=== PATIENT | female | born 1950 | race Caucasian/White ===

== ENCOUNTER 2023-10-21 05:25 | Emergency (ER) | payer OTHER ==
[~2023-10-21] VITALS: Ht 157.5 cm; Wt 83.9 kg
[~2023-10-21 05:25] MED LIST: ATI.5 PO; ATOR40TA PO; CARV3.12 PO; DULO30EC PO; EMPA1TAB PO; GLIP5TAB14 PO; HYDR12.516 PO; LOSA50TA57 PO; METF-346 PO; METH5TAB PO; METO-460 PO; OMEP40EC24 PO; SYN.075 PO
[2023-10-21 05:48] VITALS: BP 151/76; PULSE 84; RESP 16; TEMP 97.3; O2SAT 95
[2023-10-21 07:13] LABS: FLU A ANTIGEN negative (NEGATIVE); FLU B ANTIGEN NEGATIVE (NEGATIVE)
[2023-10-21] MEDS ORDERED: KETOROLAC 60 MG/2 ML VIAL IM ONE (07:40)
[2023-10-21] MEDS ORDERED: PRED20TA5 PO (07:46)
[2023-10-21] MEDS ORDERED: IBUP-2213 PO (07:46)
[2023-10-21] MEDS ORDERED: NIRM1TAB PO (07:46)
== END 2023-10-21 08:08 | disposition home or self-care (01) ==
LOC: MED 05:25
DX: U07.1 COVID-19 (principal); Z20.822 Contact with and (suspected) exposure to COVID-19; E03.9 Hypothyroidism, unspecified; K21.9 Gastro-esophageal reflux disease without esophagitis; I11.9 Hypertensive heart disease without heart failure; E11.9 Type 2 diabetes mellitus without complications; Z79.4 Long term (current) use of insulin; Z79.899 Other long term (current) drug therapy; Z88.5 Allergy status to narcotic agent
CPT/HCPCS: 87426; 87804; 96372; 99283; J1885

== ENCOUNTER 2024-04-28 16:57 | Emergency (ER) | payer OTHER ==
[~2024-04-28] VITALS: Ht 165.1 cm; Wt 79.4 kg
[~2024-04-28 16:57] MED LIST changes: -GLIP5TAB14 PO; +GLIP5TAB24 PO; +IBUP-2213 PO; +NIRM1TAB PO; +PRED20TA5 PO
[2024-04-28 17:09] VITALS: BP 122/65; PULSE 98; RESP 20; TEMP 97.5; O2SAT 100
[2024-04-28 17:32] VITALS: O2SAT 100
[2024-04-28 17:47] LABS: BASOPHILS # (AUTO) 0.1 K/uL (0.00-0.22); BASOPHILS % (AUTO) 0.7 % (0.0-2.0); EOSINOPHILS # (AUTO) 0.4 K/uL (0-0.4); EOSINOPHILS % (AUTO) 3.6 % (0.0-4.0); HEMOGLOBIN 13.1 g/dL (12.0-16.0); LYMPHOCYTES # (AUTO) 1.7 K/uL (2.5-16.5); LYMPHOCYTES % (AUTO) 14.8 % (20.5-51.1); MEAN CORPUSCULAR HEMOGLOBIN 30 pg (27-31); MEAN CORPUSCULAR HGB CONC 33 g/dL (33-37); MEAN CORPUSCULAR VOLUME 91.3 fL (80-94); MONOCYTES # (AUTO) 0.9 K/uL (0.8-1.0); MONOCYTES % (AUTO) 7.7 % (1.7-9.3); NEUTROPHILS # (AUTO) 8.5 K/uL (1.8-7.7); NEUTROPHILS % (AUTO) 73.2 % (42.2-75.2); PLATELET COUNT (AUTO) 309 K/uL (140-450); RED BLOOD CELL COUNT(AUTO) 4.37 MIL/uL (4.20-5.40); RED CELL DISTRIBUTION WIDTH 14.7 % (11.6-13.7); WHITE BLOOD COUNT (AUTO) 11.6 K/uL (4.8-10.8)
[2024-04-28] MEDS: DEXTROSE 50% 50 ML SYR IVP ONE (17:50)
[2024-04-28 18:07] LABS: ALANINE AMINOTRANSFERASE 21 U/L (12-78); ALBUMIN 3.6 g/dL (3.4-5.0); ALKALINE PHOSPHATASE 107 U/L (50-136); ANION GAP 9.6 (8-16); ASPARTATE AMINOTRANSFERASE 16 U/L (15-37); CALCIUM 9.3 mg/dL (8.5-10.1); CARBON DIOXIDE 30.7 mmol/L (21-32); CHLORIDE 102 mmol/L (98-107); CREATININE 0.7 mg/dL (0.6-1.3); LIPASE 26 U/L (16-77); POTASSIUM 3.3 mmol/L (3.5-5.1); SODIUM SERUM 139 mmol/L (136-145); TOTAL BILIRUBIN 0.4 mg/dL (0.0-1.0); TOTAL PROTEIN, SERUM 7.4 g/dL (6.4-8.2); UREA NITROGEN, BLOOD 15 mg/dL (7-18)
[2024-04-28 18:12] LABS: GLUCOSE 47 mg/dL (74-106)
[2024-04-28 18:39] LABS: APPEARANCE,URINE SL CLOUDY (CLEAR); BILIRUBIN,URINE NEGATIVE (NEGATIVE); BLOOD, URINE TRACE-I (NEGATIVE); COLOR,URINE YELLOW (YELLOW); LEUKOCYTE ESTERASE ,URINE NEGATIVE (NEGATIVE); NITRITE, URINE NEGATIVE (NEGATIVE); PROTEIN,URINE NEGATIVE (NEGATIVE); UGLUCOSE 3+ (NEGATIVE); UROBILINOGEN,URINE 0.2 EU/dL (0.2 - 1)
[2024-04-28 18:58] LABS: BACTERIA,URINE 10-30 (MOD) /HPF (None Seen); RBC,URINE 0-5 /HPF (0-5); SQUAMOUS EPITHELIAL CELL,UR 0-3 (FEW) /LPF (0-3 (FEW)); WBC,URINE 0-5 /HPF (0-5)
[2024-04-28] MEDS: DEXTROSE 10% 1,000 ML IV SCH (22:41)
[2024-04-29] MEDS: LORazepam 0.5 MG TAB PO ONE (00:25)
[2024-04-29 00:38] VITALS: BP 132/72; PULSE 76; RESP 16; TEMP 98; O2SAT 98
== END 2024-04-29 00:38 | disposition left against medical advice (07) ==
LOC: MED 16:57
DX: E16.2 Hypoglycemia, unspecified (principal); N39.0 Urinary tract infection, site not specified; J45.909 Unspecified asthma, uncomplicated; E11.9 Type 2 diabetes mellitus without complications; I10 Essential (primary) hypertension; K21.9 Gastro-esophageal reflux disease without esophagitis; Z95.0 Presence of cardiac pacemaker; Z86.39 Personal history of other endocrine, nutritional and metabolic disease; Z79.1 Long term (current) use of non-steroidal anti-inflammatories (NSAID); Z79.899 Other long term (current) drug therapy; Z79.84 Long term (current) use of oral hypoglycemic drugs; Z88.6 Allergy status to analgesic agent; Z88.5 Allergy status to narcotic agent
CPT/HCPCS: 36415; 80053; 81001; 82948; 83690; 84484; 85025; 87086; 93005; 96365; 96376; 99285; J7030